=== PATIENT | female | born 1945 ===

== ENCOUNTER → 2022-07-23 | Outpatient (CLI) | payer MEDICARE, OTHER ==
[~2022-07-23] VITALS: Ht 149.9 cm; Wt 58.0 kg
[~2022-07-23] MED LIST: AMLO-258 PO; ASPI-1450 PO; CHOL200059 PO; CYAN500T56 PO; IRBE150T51 PO; OMEP20 PO; TRAZ-252 PO
[2022-07-23 11:12] VITALS: BP 134/58
== END | disposition home or self-care (01) ==
LOC: SRCNTR 10:54
PROVIDERS: ATTEND Internal Medicine Pulmonary Disease
DX: I10 Essential (primary) hypertension (principal); K21.9 Gastro-esophageal reflux disease without esophagitis; M81.0 Age-related osteoporosis without current pathological fracture; Z86.16 Personal history of COVID-19
CPT/HCPCS: G0463; Z7500